=== PATIENT | female | born 1995 | race Caucasian/White ===

== ENCOUNTER 2023-05-10 05:00 | Inpatient (IN) | payer BC ==
[2023-05-11] MEDS ORDERED: HYDROcodone/Acetaminophen 5/325 mg Tablet PO PRN ×4 (03:27→20:44)
[2023-05-11] MEDS ORDERED: Misoprostol 100 MCG TAB VAG SCH (03:27)
[2023-05-11] MEDS ORDERED: Ondansetron PF 4 MG/2 ML Vial IVP PRN ×3 (03:27→20:44)
[2023-05-11] MEDS ORDERED: Lidocaine 1% (PF) 30 ML VIAL SC PRN (03:27)
[2023-05-11] MEDS ORDERED: Ibuprofen 800 MG TAB PO PRN (03:27)
[2023-05-11] MEDS ORDERED: hydrALAZINE 20 MG/ML VIAL SLOW IVP PRN ×2 (03:27→20:44)
[2023-05-11] MEDS ORDERED: Oxytocin 30 units/NS 500 ML 500 ML IV SCH ×3 (03:27→20:44)
[2023-05-11] MEDS ORDERED: Promethazine HCl 25 MG/ML VIAL IM PRN ×2 (03:27→11:51)
[2023-05-11 03:28] VITALS: BMI 26.1
[2023-05-11] MEDS: Misoprostol 100 MCG TAB VAG SCH ×2 (03:56→07:11)
[2023-05-11] MEDS: Lactated Ringer's 1,000 ML IV SCH ×3 (03:56→12:41)
[2023-05-11 04:31] LABS: Hematocrit 32.8 % (34.9-44.5); Hemoglobin 10.8 g/dL (12.0-15.5); Mean Corpuscular HGB CONC 32.9 g/dL (32.0-36.0); Mean Corpuscular Volume 88.2 fl (81.6-98.3); Mean Platelet Volume 11.4 fl (7.4-10.4); Platelet Count 224 10x3/uL (150-450); RBC Distribution Width 13.2 % (11.5-14.5); Red Blood Cell (RBC) Count 3.72 10x6/uL (3.90-5.03)
[2023-05-11 04:55] LABS: HBSAg Index 0.12 S/CO (0-0.99); Hep B Surf Ag - L&D Non-Reactive S/CO (NonReactive)
[2023-05-11 04:56] LABS: Syphilis Antibody Nonreactive (Nonreactive); Syphilis Antibody Index 0.07 S/CO (<1.00 Non-Reactive)
[2023-05-11] MEDS ORDERED: Bupivacaine 0.25% HCL 30 ML VIAL ONE (08:00)
[2023-05-11] MEDS ORDERED: fentaNYL/Ropivacaine Epidural 100 ML ONE (11:49)
[2023-05-11] MEDS ORDERED: diphenhydrAMINE 50 MG/ML VIAL IVP PRN (11:51)
[2023-05-11] MEDS ORDERED: Moisturizing Cream (Eucerin) 113 GM JAR TOP PRN (11:51)
[2023-05-11] MEDS ORDERED: Naloxone HCl 0.4 mg/ml Vial IVP PRN ×2 (11:51)
[2023-05-11] MEDS ORDERED: ePHEDrine Sulfate 50 MG/10 ML VIAL SLOW IVP PRN (11:51)
[2023-05-11] MEDS ORDERED: Acetaminophen 325 MG TAB PO PRN (11:51)
[2023-05-11] MEDS ORDERED: Lactated Ringer's 500 ML IV PRN (11:51)
[2023-05-11] MEDS ORDERED: Communication Order-Pharmacy FS SCH (12:00)
[2023-05-11] MEDS ORDERED: fentaNYL 2 mcg/Ropivacaine 0.2% Epidural 100 ML CADD EPIDURAL SCH (12:00)
[2023-05-11] MEDS ORDERED: Misoprostol 200 MCG TAB ONE (20:07)
[2023-05-11] MEDS ORDERED: Methylergonovine 0.2 MG/ML VIAL ONE (20:08)
[2023-05-11] MEDS ORDERED: Bisacodyl 10 MG SUPP PR PRN (20:44)
[2023-05-11] MEDS ORDERED: Lanolin Ointment 7 GM TUBE TOP PRN (20:44)
[2023-05-11] MEDS ORDERED: diphenhydrAMINE 25 MG CAP PO PRN (20:44)
[2023-05-11] MEDS ORDERED: Benzocaine-Menthol 82.5 ML CAN TOP PRN (20:44)
[2023-05-11] MEDS ORDERED: Boostrix 0.5 ML (Tdap) VIAL (>/=7 yrs of age) IM ONE (20:44)
[2023-05-11] MEDS ORDERED: Milk Of Magnesia 30 ML UDCUP PO PRN (20:44)
[2023-05-11] MEDS ORDERED: Preparation H Ointment 28 GM TUBE PR PRN (20:44)
[2023-05-11] MEDS: Ibuprofen 800 MG TAB PO SCH (20:52)
[2023-05-12] MEDS: Ibuprofen 800 MG TAB PO SCH ×3 (06:20→21:27)
[2023-05-12] MEDS: Prenatal Vitamin 1 TAB PO SCH (08:33)
[2023-05-12] MEDS: Docusate 100 MG CAP PO SCH ×3 (08:34→21:27)
[2023-05-12] MEDS: Ferrous Sulfate 325 MG TAB PO SCH ×2 (09:28→19:54)
[2023-05-12] MEDS: Misoprostol 100 MCG TAB VAG SCH ×2 (09:29→09:30)
[2023-05-13] MEDS ORDERED: Ondansetron ODT 4 MG TAB PO PRN (05:08)
[2023-05-13] MEDS: Ibuprofen 800 MG TAB PO SCH (05:15)
[2023-05-13] MEDS: Prenatal Vitamin 1 TAB PO SCH (08:59)
[2023-05-13] MEDS: Docusate 100 MG CAP PO SCH (08:59)
[2023-05-13] MEDS: Ferrous Sulfate 325 MG TAB PO SCH (09:00)
[2023-05-13 10:52] VITALS: BP 117/59; TEMP 97.9
== END 2023-05-13 12:00 | disposition home or self-care (01) | DRG 807 ==
LOC: CSHLD 05-11 03:08 → CSHPP 05-11 23:29
PROVIDERS: ADMIT Obstetrics & Gynecology; ATTEND Obstetrics & Gynecology
PROC: 3E0P7VZ Introduction of Hormone into Female Reproductive, Via Natural or Artificial Opening (ICD-10-PCS; 2023-05-10)
PROC: 10E0XZZ Delivery of Products of Conception, External Approach (ICD-10-PCS; principal; 2023-05-11)
PROC: 10907ZC Drainage of Amniotic Fluid, Therapeutic from Products of Conception, Via Natural or Artificial Opening (ICD-10-PCS; 2023-05-11)
PROC: 10H07YZ Insertion of Other Device into Products of Conception, Via Natural or Artificial Opening (ICD-10-PCS; 2023-05-11)
PROC: 0HQ9XZZ Repair Perineum Skin, External Approach (ICD-10-PCS; 2023-05-11)
DX: O77.0 Labor and delivery complicated by meconium in amniotic fluid (principal); Z37.0 Single live birth; Z3A.40 40 weeks gestation of pregnancy; O62.2 Other uterine inertia; O70.0 First degree perineal laceration during delivery; D50.9 Iron deficiency anemia, unspecified; O90.81 Anemia of the puerperium; Z91.040 Latex allergy status
CPT/HCPCS: 36415; 51702; 85027; 86780; 86850; 86900; 86901; 87340; J2405; J2590; J7120; Q0162; S0020